=== PATIENT | male | born 1945 | race Caucasian/White ===

== ENCOUNTER 2020-12-16 14:08 | Emergency (ER) | payer MEDICARE ==
[~2020-12-16] VITALS: Ht 188 cm; Wt 66.6 kg
[2020-12-16] MEDS ORDERED: ZESTRIL10 M1 PO (14:43)
[2020-12-16] MEDS ORDERED: PLAVIX75 MG PO (14:44)
[2020-12-16] MEDS ORDERED: METOPROLOL SUCC50 MG PO (14:44)
[2020-12-16] MEDS ORDERED: MEDDOSEPAK PO (15:48)
[2020-12-16 16:00] VITALS: BP 135/89
== END 2020-12-16 16:00 | disposition home or self-care (01) ==
LOC: ED 14:08
DX: M25.561 Pain in right knee (principal); M25.461 Effusion, right knee; I10 Essential (primary) hypertension; F17.210 Nicotine dependence, cigarettes, uncomplicated; Z86.73 Personal history of transient ischemic attack (TIA), and cerebral infarction without residual deficits